=== PATIENT | female | born 1980 | race African-American/Black ===

== ENCOUNTER 2023-07-28 21:57 | Emergency (ER) | payer BC, SELFPAY ==
--- NOTE | ~2023-07-28 | XR_ITS ---
EXAMINATION: XR chest 1V portable Exam Date/Time: 07/28/2023 22:30 CDT HISTORY: dyspnea , SOB, DIZZINESS X CAFE LEAD Comparison: None. RESULT: Lines, tubes, and devices: None. Lungs and pleura: Clear. Cardiomediastinal silhouette: Unremarkable. Other: No acute osseous or upper abdominal finding. IMPRESSION: No acute cardiopulmonary process. Reviewed, dictated and finalized at location K.
[2023-07-28 21:58] VITALS: BP 150/109; PULSE 78; RESP 19; TEMP 36.9; O2SAT 100
[2023-07-28 22:04] VITALS: PULSE 75
--- NOTE | 2023-07-28 22:05 | ECG_ITS ---
[facility] [address] Test Date: 2023-07-28 Pat Name: Catherine Cerna Department: Room: Gender: F Equipment Service Engineer: : [id number] Requested By: Esequiel Woodard Order Number: [id number] Farhan MD: Sterling Vieira D.O. Measurements Intervals [place] Rate: 73 P: 55 ME: 179 QRS: -7 QRSD: 105 T: 16 QT: 405 QTc: 447 Interpretive Statements SINUS RHYTHM DELAYED PRECORDIAL R/S TRANSITION BASELINE ARTIFACT- I, II, III, AVR, AVL, AVF, V1-V2 BORDERLINE ECG No previous ECG available for comparison Electronically Signed On 07-29-2023 08:32:14 CDT by Sterling Vieira D.O.
--- NOTE | 2023-07-28 22:12 | ED.DIZZY ---
HPI - Dizziness General Chief Complaint: Dizziness Stated Complaint: SOB, HOT FLASHES, DIZZINESS Time Seen by Provider: 07/28/23 22:04 Source: patient Mode of arrival: ambulatory Limitations: no limitations History of Present Illness HPI Narrative: This is a 43-year-old female with PMH of HTN who presents to the ED via EMS from local restaurant for chief complaint of shortness of breath, dizziness and hot flashes. Per EMS report patient was ordering her food, went to her car and then began feeling on well. Patient states this is been going on intermittently for the past couple of days. Patient states this started yesterday afternoon after standing in the hot sun for multiple hours for a work function. She reports today she was doing all right until she was sitting at the restaurant. States she began to feel little lightheaded, dizzy and had multiple hot flashes. She reports she then order referred to go and try to go into her car. She felt unsafe dry because she may pass out so she called EMS. The patient does note that the last time she felt like this she was told she had anemia and had to get iron infusions. Denies chest pain, fevers, chills, abdominal pain, vomiting, headache, numbness, weakness. Recent Bactrim for UTI. Related Data Allergies Allergy/AdvReac Type Severity Reaction Status Date / Time No Known Allergies Allergy Verified 07/28/23 22:02 Review of Systems Review of Systems: All systems as dictated in HPI Exam Narrative: GENERAL: Well-appearing, well-nourished, and in no acute distress. HEAD: Normocephalic, atraumatic. EYES: PERRLA and EOMI. ENT: Nares clear, no rhinorrhea or epistaxis. Oropharynx without tonsillar hypertrophy exudate or other lesions. Somewhat dry mucous membranes present. NECK: Supple. No adenopathy or masses. CHEST: No respiratory distress. Clear to auscultation. No wheezes rales or rhonchi HEART: Regular rate and rhythm. No murmur heard. Normal peripheral pulses. ABDOMEN: Soft, nontender, nondistended, normal active bowel sounds. MSK: Normal range of motion. No edema. SKIN: Warm, dry, no rash. NEURO: Alert and oriented x3. No focal deficits. PSYCH: Normal mood and affect. Course Vital Signs Vital signs: Vital Signs Temperature 98.5 F 07/28/23 21:58 Pulse Rate 78 07/28/23 21:58 Respiratory Rate 19 07/28/23 21:58 Blood Pressure 150/109 H 07/28/23 21:58 Pulse Oximetry 100 07/28/23 21:58 Oxygen Delivery Room Air 07/28/23 21:58 Temperature 98.5 F 07/28/23 21:58 Pulse Rate 82 07/28/23 23:14 Respiratory Rate 18 07/28/23 23:14 Blood Pressure 142/58 H 07/28/23 23:14 Pulse Oximetry 98 07/28/23 23:14 Oxygen Delivery Room Air 07/28/23 21:58 MDM - Dizziness MDM Narrative Medical decision making narrative: This is a 43-year-old female who presents to the ED with chief complaint of lightheadedness, dizziness hot flashes over the last couple of days. Vitals are normal. Exam shows mildly dry mucous membranes indicating some dehydration. This all started after standing in the hot sun yesterday afternoon. Lab work today shows a normal CBC overall. CMP shows some evidence dehydration. She feels improved after fluids here. Currently asymptomatic and ready to go home. Pt will be discharged in stable condition. Return precautions given and supportive measures discussed. Pt is understanding and agreeable with plan for discharge and follow-up with PCP. Lab Data 07/29/23 00:16 07/28/23 23:03 Labs: Lab Results 07/28/23 07/28/23 07/29/23 Range/Units 22:07 23:03 00:16 WBC 4.9 (4.5-10.0) K/mm3 RBC 4.51 (4.2-5.4) M/mm3 Hgb 12.8 (12.0-15.0) g/dL Hct 41.6 (37.0-47.0) % MCV 92.2 (80-100) fl MCH 28.4 (26-34) pg MCHC 30.8 L (32-36) g/dl RDW 14.3 (11.5-14.5) % Plt Count 185 (150-375) k/mm3 MPV 10.7 H (7.4-10.4) fl Immature Gran % (Auto) 0.2 (0-0.5) %
[2023-07-28 22:18] LABS: Glucose Point of Care 147 mg/dl (65-105)
[2023-07-28] MEDS: SODIUM CHLORIDE 0.9% IV 1,000 ML 999 ML IV CONT (22:38)
[2023-07-28 23:14] VITALS: BP 142/58; PULSE 82; RESP 18; O2SAT 98
[2023-07-28 23:42] LABS: Alanine Aminotransferase 22 U/L (6-35); Alkaline Phosphatase 70 U/L (38-126); Anion Gap 8 mmol/L (4-12); Aspartate Amino Transferase 32 U/L (14-36); Bilirubin,Total 0.6 mg/dL (0.2-1.3); Blood Urea Nitrogen 12 mg/dL (7-17); Calcium 8.8 mg/dL (8.4-10.2); Carbon Dioxide 19 mmol/L (22-30); Chloride 108 mmol/L (98-107); Estimated CRCL calculation 146 ml/min; Estimated Glomerular Filt Rate > 60; Glucose 174 mg/dL (65-110); Potassium 4.1 mmol/L (3.4-5.0); Sodium 135 mmol/L (137-145)
[2023-07-29 00:30] LABS: Basophils Percent Auto 0.6 % (0.2-1.2); Eosinophils Absolute Auto 0.1 K/mm3 (0-0.3); Eosinophils Percent Auto 2.3 % (0-4.4); Hematocrit 41.6 % (37.0-47.0); Hemoglobin 12.8 g/dL (12.0-15.0); Immature Granulocyte Absolute 0.01 K/mm3 (0.00-0.031); Immature Granulocyte Percent A 0.2 % (0-0.5); Immature Platelet Fraction Pct 9.4 % (0.9-11.2); Lymphocytes Absolute Auto 1.71 K/mm3 (0.9-3.2); Mean Corpuscular HGB Conc 30.8 g/dl (32-36); Mean Corpuscular Hemoglobin 28.4 pg (26-34); Mean Corpuscular Volume 92.2 fl (80-100); Mean Platelet Volume 10.7 fl (7.4-10.4); Monocytes Absolute Auto 0.6 K/mm3 (0.1-0.6); Monocytes Percent Auto 11.7 % (2.6-8.5); Neutrophils Absolute Auto 2.5 K/mm3 (1.3-6.7); Neutrophils Percent Auto 50.2 % (45.5-73.1); Platelet Count Result 185 k/mm3 (150-375); Red Blood Count 4.51 M/mm3 (4.2-5.4); Red Cell Distribution Width 14.3 % (11.5-14.5); White Blood Count 4.9 K/mm3 (4.5-10.0)
== END 2023-07-29 01:28 | disposition home or self-care (01) ==
PROVIDERS: Emergency Provider Physician Assistant
DX: E86.0 Dehydration (principal); I10 Essential (primary) hypertension; R94.31 Abnormal electrocardiogram [ECG] [EKG]
CPT/HCPCS: 36415; 71045; 80053; 82948; 85025; 85055; 93005; 96360; 99284; J7030